=== PATIENT | male | born 1985 | race African-American/Black ===

== ENCOUNTER 2020-07-22 22:49 | Emergency (ER) | payer MEDICAID ==
[~2020-07-22] VITALS: Ht 180.3 cm; Wt 72.0 kg
[2020-07-22 22:51] VITALS: BP 136/98
[2020-07-22] MEDS ORDERED: IPRATROPIUM BROMIDE (0.02%) 0.5MG/2.5ML NEB HHN ONE (23:30)
[2020-07-22] MEDS ORDERED: ALBUTEROL (0.5%) 2.5MG/0.5ML NEB HHN ONE (23:30)
[2020-07-22] MEDS ORDERED: PREDNISONE 20MG TABLET PO ONE (23:30)
== END 2020-07-23 00:21 | disposition left against medical advice (07) ==
LOC: ER 22:49
DX: R06.02 Shortness of breath (principal); J45.909 Unspecified asthma, uncomplicated
CPT/HCPCS: 93005; 99283; J7512

== ENCOUNTER 2021-06-11 16:27 | Emergency (ER) | payer MEDICAID, OTHER ==
[~2021-06-11] VITALS: Ht 182.9 cm; Wt 78.5 kg
[2021-06-11 21:50] LABS: BASOPHILS % 0.2 % (0.0-2.0); EOSINOPHILS % 1.9 % (0.0-5.0); HEMATOCRIT. 39.6 % (42.0-52.0); HEMOGLOBIN. 13.6 g/dL (14.0-18.0); LYMPHOCYTES % 27.1 % (20.0-50.0); MEAN CORPUSCULAR HEMOGLOBIN 29.8 pg (28.0-32.0); MEAN CORPUSCULAR VOLUME 86.7 fL (80.0-94.0); MEAN PLATELET VOLUME 7.6 fl (7.4-10.4); MONOCYTES % 10.3 % (2.0-8.0); NEUTROPHILS % 60.5 % (40.0-76.0); PLATELET 187 x1000/uL (130-400); RED BLOOD CELL COUNT 4.57 mill/uL (4.7-6.1); RED CELL DISTRIBUTION WIDTH 13.2 % (11.6-14.6)
[2021-06-11 21:57] LABS: CHLORIDE 107 mEq/L (98-107)
[2021-06-11 21:59] LABS: CLARITY URINE CLEAR (CLEAR); COLOR URINE YELLOW (YELLOW); KETONES URINE TRACE (NEGATIVE); LEUKOCYTE ESTERASE URINE NEGATIVE (NEGATIVE); NITRITE URINE NEGATIVE (NEGATIVE); OCCULT BLOOD URINE NEGATIVE (NEGATIVE); PROTEIN URINE NEGATIVE (NEGATIVE); SPECIFIC GRAVITY URINE 1.025 (1.005-1.030)
[2021-06-11 22:01] LABS: ETHANOL BLOOD < 10 mg/dL
[2021-06-11 22:10] LABS: *AMPHETAMINES SCREEN URINE NEGATIVE (NEGATIVE); *BARBITURATES SCREEN URINE NEGATIVE (NEGATIVE); *BENZODIAZEPINES SCREEN URINE NEGATIVE (NEGATIVE); *COCAINE SCREEN URINE PRESUMTIVE POSITIVE (NEGATIVE); METHADONE URINE SCREEN NEGATIVE (NEGATIVE)
[2021-06-11 22:11] LABS: CANNABINOID URINE SCREEN NEGATIVE (NEGATIVE); OPIATES URINE SCREEN NEGATIVE (NEGATIVE); PHENCYCLIDINE URINE SCREEN NEGATIVE (NEGATIVE)
[2021-06-12 01:50] VITALS: BP 133/84
[2021-06-12] MEDS ORDERED: ALBU6.7H9 INH (02:46)
[2021-06-12] MEDS ORDERED: IBUP-2029 MT (02:46)
[2021-06-12] MEDS ORDERED: BENZ-16 MT (02:46)
== END 2021-06-12 02:06 | disposition home or self-care (01) ==
LOC: ER 16:27
DX: T40.5X1A Poisoning by cocaine, accidental (unintentional), initial encounter (principal); G92 Toxic encephalopathy; I10 Essential (primary) hypertension; J45.909 Unspecified asthma, uncomplicated; Y92.511 Restaurant or cafe as the place of occurrence of the external cause
CPT/HCPCS: 36415; 80053; 80305; 80307; 80320; 80329; 81003; 85025; 99283; G0480

== ENCOUNTER 2021-06-12 02:28 | Emergency (ER) | payer MEDICAID, OTHER ==
[~2021-06-12] VITALS: Ht 182.9 cm; Wt 175.0 kg
[2021-06-12 02:37] VITALS: BP 148/93
[2021-06-12] MEDS ORDERED: THROAT LOZENGES-BENZOCAINE/MENTH/CETYLPYRD CL LOZENGES MM ONE (02:45)
[2021-06-12] MEDS ORDERED: ALBUTEROL 6.7GM HFA INHALER ORI ONE (02:45)
[2021-06-12] MEDS ORDERED: IBUP-2029 MT (02:46)
[2021-06-12] MEDS ORDERED: BENZ-16 MT (02:46)
[2021-06-12] MEDS ORDERED: ALBU6.7H9 INH (02:46)
== END 2021-06-12 03:30 | disposition home or self-care (01) ==
LOC: ER 03:30
DX: R05 Cough (principal); R03.0 Elevated blood-pressure reading, without diagnosis of hypertension; F14.10 Cocaine abuse, uncomplicated; F17.210 Nicotine dependence, cigarettes, uncomplicated; Z59.0 Homelessness
CPT/HCPCS: 99283; Z7610